=== PATIENT | male | born 1950 | race Caucasian/White ===

== ENCOUNTER → 2021-01-06 | Outpatient (CLI) | payer MEDICARE ==
--- NOTE | 2021-01-06 15:51 | KCIC ---
XR BILATERAL HIP (WITH OR WITHOUT PELVIS) LEFT 2 VIEWS, XR LUMBAR SPINE 4+V History: Osteoarthritis hips. Low back pain without sciatica. Comparison: None. Technique: 5 views of lumbar spine. AP pelvis. Cone-down AP and frog-leg lateral views of the left hi p. Findings: There is no evidence for fracture. Alignment is normal. No destructive osseous lesions are seen. Lower lumbar facet hypertrophy. Mild disc space narrowing at L5-S1. Multilevel endplate osteophytes. Right greater than left hip degenerative changes with superior femoral acetabular joint space narrowi ng, subchondral sclerosis and marginal osteophytes. Pistol-special weapons and tactics officer morphology of the femoral head neck j unction bilaterally. The pubic rami are intact. Mild degenerative changes of the sacroiliac joints. IMPRESSION: 1. No acute osseous abnormality in the lumbar spine and hips. 2. Lower lumbar predominant disc and facet disease. 3. 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 Electronically signed by: Amaury Corral MD (01/06/2021 3:49 PM) [facility]
--- NOTE | 2021-01-06 15:51 | KCIC ---
XR BILATERAL HIP (WITH OR WITHOUT PELVIS) LEFT 2 VIEWS, XR LUMBAR SPINE 4+V History: Osteoarthritis hips. Low back pain without sciatica. Comparison: None. Technique: 5 views of lumbar spine. AP pelvis. Cone-down AP and frog-leg lateral views of the left hi p. Findings: There is no evidence for fracture. Alignment is normal. No destructive osseous lesions are seen. Lower lumbar facet hypertrophy. Mild disc space narrowing at L5-S1. Multilevel endplate osteophytes. Right greater than left hip degenerative changes with superior femoral acetabular joint space narrowi ng, subchondral sclerosis and marginal osteophytes. Pistol-medicaid specialist morphology of the femoral head neck j unction bilaterally. The pubic rami are intact. Mild degenerative changes of the sacroiliac joints. IMPRESSION: 1. No acute osseous abnormality in the lumbar spine and hips. 2. Lower lumbar predominant disc and facet disease. 3. 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 Electronically signed by: Amaury Corral MD (01/06/2021 3:49 PM) [facility]
== END ==
LOC: KCIC 09:49
PROVIDERS: ATTEND Family Medicine
DX: M16.0 Bilateral primary osteoarthritis of hip (principal); M47.816 Spondylosis without myelopathy or radiculopathy, lumbar region; M48.07 Spinal stenosis, lumbosacral region; M51.36 Other intervertebral disc degeneration, lumbar region; M25.78 Osteophyte, vertebrae
CPT/HCPCS: 72110; 73502

== ENCOUNTER → 2021-04-20 | Outpatient (CLI) | payer MEDICARE ==
[~2021-04-20] MED LIST: ASPI81TA59 PO; CRESTOR40 MG PO; ESOM40CA PO; EZET10TA20 PO; GLUC1TAB71 PO; IPRA0.2S5 NEB; MAGN400T48 PO; MELO15TA23 PO; METO-239 PO; MULT-245 PO; OMEG-117 PO; TAMS0.4C97 PO; TIOT4MIS5 IH; TURM500C4 PO; UBID200C32 PO
--- NOTE | 2021-04-20 12:44 | PDOC1 ---
INITIAL PAIN CONSULT DATE OF SERVICE: DOS: DATE: 04/20/21 TIME: 12:38 CHIEF COMPLAINT: Chief Complaint: Low back and left lower extremity pain HISTORY OF PRESENT ILLNESS: 70-year-old male presents history of pain low back left lower extremity for about 4 months after he was doing some remodeling on his home had some pain increased in the low back rating the left lower extremity posterior gluteus lateral thigh anterior thigh medial thigh medial groin and into the medial knee on the left side. Patient reports its been getting worse with walking standing changing positions and sitting for more than 15 to 20 minutes has a buzzing sensation in the same distribution of the left leg and groin patient reports it wakes him to sleep least twice a night can affect his bowel bladder control no incontinence but has some increased frequency with bladder control with the pain and buzzing sensation patient reports it does affect his ability to walk is not use any assistive devices however patient reports he is doing some stretching strengthening currently and is using his CA for a Silver sneakers program with pool therapy as well as a stretching and strengthening and mostly he is doing on his own currently patient reports it is a shooting pain in the low back radiating numbness and tingling sensation cramping in the low back at times as well. Patient rates disability rating 0-10 10 being the worst is a 6 with at home was possibilities recreation social activity occupation sexual behavior self-care and life support activities. Patient did have MRI scan lumbar spine showing L3-4 broad-based right subarticular foraminal bulging disc extending 0.5 cm posteriorly resulting in narrowing of the inferior aspect of the neuroforamen and displacement of the right L4 nerve root with some mild bulging annulus L4-5 and L5-S1. Patient reports a loss of motor function with significant fatigability of the left lower extremity with ambulation and standing. PAST MEDICAL HISTORY: PMH: Arthritis, coronary artery disease, cigarette smoking, emphysema PREVIOUS SURGERIES: Past Surgical Hx: Cholecystectomy, left shoulder surgery, right knee tendon repair, appendectomy, ulnar nerve transposition CURRENT MEDICATIONS: Current Meds: Active Scripts Medications Dose Route/Sig Max Daily Dose Days Date Category Magnesium Oxide 400 Mg Tablet 1 Tab PO DAILY 04/20/21 Reported Turmeric 500 mg Capsule (Turmeric/Turmeric Root Extract) 1 Each Capsule 1 Each PO DAILY 04/20/21 Reported Co Q10 (Ubidecarenone) 200 Mg Capsule 1 Cap PO DAILY 30 04/20/21 Reported Osteo Bi-Flex Caplet (Glucosamine/D3/Boswellia Myesha) 1 Each Tablet 2 Each PO DAILY 04/20/21 Reported Multi Vitamin Daily (Multivitamin) 1 Each Tablet 1 Tab PO DAILY 30 04/20/21 Reported Fish Oil 1,200 mg Softgel ([place]-3/Dha/Epa/Fish Oil) 1 Each Capsule.dr 4 Cap PO DAILY 30 04/20/21 Reported Children's Aspirin (Aspirin) 81 Mg Tab.chew 1 Tab PO DAILY 30 04/20/21 Reported Spiriva Respimat (Tiotropium Capitola) 4 Gm Mist.inhal 4 Gm IH DAILY 04/20/21 Reported Ipratropium Capitola 0.2 Mg/1 Ml Solution 1 Vial NEB BID 04/20/21 Reported Crestor (Rosuvastatin Calcium) 40 Mg Tablet 1 Tab PO DAILY 04/20/21 Reported Zetia (Ezetimibe) 10 Mg Tablet 1 Tab PO DAILY 30 04/20/21 Reported Metoprolol Succinate ( Xl ) (Metoprolol Succinate) 25 Mg Tab.er.24h 50 Mg PO DAILY 04/20/21 Reported Meloxicam 15 Mg Tablet 1 Tab PO DAILY 30 04/20/21 Reported Flomax (Tamsulosin Hcl) 0.4 Mg Cap.er.24h 0.4 Mg PO DAILY 04/20/21 Reported Nexium Capsule (Esomeprazole Magnesium) 40 Mg Capsule.dr 1 Cap PO DAILY 04/20/21 Reported FAMILY HISTORY: Family Hx: Heart disease, diabetes, colon cancer SOCIAL HISTORY: Social Hx: Patient is under alcohol but does smoke about a pack a day for the past 45 years does not use any illicit recreational drugs is lives with his spouse lives locally in [facility]. REVIEW OF SYSTEMS: ROS: Positive for those items mentioned in history of present illness, all systems are reviewed, otherwise negative ,and are complete full and well-documented on patient's chart. PHYSICAL EXAM: VS: Blood pressure is 140/78 pulse 78 respirations 18 temperature is 98.1 F height is 5 feet 7 inches weight 161 pounds PE: PHYSICAL EXAMINATION: GENERAL: The patient is awake, alert, oriented, appropriate, very pleasant in demeanor HEENT: Shows normocephalic, atraumatic. Extraocular movements are intact and symmetrical. Oral cavity: Mucous membranes moist and pink. Dentition is intact. NECK: Shows anterior throat supple without palpable lymphadenopathy noted. Swallow reflex symmetrical. CHEST: Shows normal on inspection. Breath sounds are clear bilaterally, distant with coarse breath sounds on the right in the upper and lower distribution less coarse on the left. HEART: Shows S1, S2 clear. No murmurs auscultated. ABDOMEN: Soft, nontender, nondistended, obese. No palpable organomegaly is noted. No rebound or guarding demonstrated. BACK: Shows spine grossly in the midline. Normal-appearing cervical lordotic curvature. There is slightly increased thoracic kyphosis, some minor flattening of the lumbar lordotic curvature. Lumbar paraspinous muscles show symmetrical on inspection, on palpation shows some moderate tenderness diffusely throughout the upper, middle and lower distribution of the paraspinous muscles bilaterally and also into the lower thoracic paraspinous musculature, firm and tender, but without specific trigger points, without radiation of pain. The patient has good rotational motion of the lumbar spine, both laterally as well as extension and flexion without significant difficulty. No tenderness over the spinous processes, sacrum or sacroiliac regions. EXTREMITIES: Lower extremities show deep tendon reflexes 2+ in the patellar and tendo calcaneus tendons. Motor exam is 5 on a scale of 5 with right dorsiflexion, extension, quadriceps and hamstring flexion and 4/5 on the left. Peripheral pulses are 1+ posterior tibial. No peripheral edema is noted bilaterally. Lower extremities are warm and dry to touch, equal in color and appearance. Straight leg raise noted to be positive on the left approximate 40 degrees decreased with knee flexion right side is negative. Gaenslen's and Hudson's maneuvers are negative bilaterally. The patient is able to stand, stand on his toes that significant difficulty loss of balance, walks with a slight favoring gait does appear to favor the left lower extremity moderately but not use any assistive device such as canes or walker to ambulate. SKIN: Shows warm and dry, good turgor. No edema. No sores, rashes or bruising throughout. IMPRESSION: Impression: 70-year-old male with approximate 4-month history increasing pain low back left lower extremity radicular fashion following an L3-4 dermatomal distribution. MRI scan lumbar spine as noted Arthritis Coronary artery disease Cigarette smoking Plan: Options were discussed with the patient including conservative measures continued physical therapies and interventional techniques. Patient would like to pursue interventional techniques. We discussed a lumbar epidural steroid injections description as well as anatomical models to describe the procedure. Patient will wait for preauthorization with his insurance provider once his F riday we will have him return for lumbar epidural steroid at that time a translaminar approach at the L3-4 level with fluoroscopic guidance. In the meantime, patient continue with stretching strength exercise as well as oral analgesics anti-inflammatories (meloxicam), as currently. MERLE SINHA MD Apr 20, 2021 12:44
== END | disposition home or self-care (01) ==
LOC: PNCL 11:04
PROVIDERS: ATTEND Anesthesiology
DX: M54.59 Other low back pain (principal); M79.605 Pain in left leg; M19.90 Unspecified osteoarthritis, unspecified site; I25.10 Atherosclerotic heart disease of native coronary artery without angina pectoris; J43.9 Emphysema, unspecified; Z87.891 Personal history of nicotine dependence; Z90.49 Acquired absence of other specified parts of digestive tract; Z98.890 Other specified postprocedural states; Z79.82 Long term (current) use of aspirin; Z79.899 Other long term (current) drug therapy; Z82.49 Family history of ischemic heart disease and other diseases of the circulatory system; Z83.3 Family history of diabetes mellitus; Z80.0 Family history of malignant neoplasm of digestive organs
CPT/HCPCS: G0463